=== PATIENT | male | born 1965 | race African-American/Black ===

== ENCOUNTER → 2017-06-08 | Outpatient (CLI) | payer OTHER ==
[~2017-06-08] MED LIST: ALBUTEROL17 GM INH; ALPHAGAN P5 ML OU; ASPIRIN81 M2 PO; ATRIPLA TABLET1 TAB PO; AZITHROMYCIN250 MG PO; BACTRIM 400-801 TA1 PO; BACTRIM DS TABL1 TAB PO; BENZONATATE PO; CENTRUM PO; DOXYCYCLINE PO; FLEXERIL10 MG PO; FLONASE16 GM; FOLIC ACID PO; KALETRA PO; LEXIVA700 MG PO; LISINOPRIL20 MG PO; LORTAB 7.5-3251 EACH PO; MEDROL DOSEPAK4 MG PO; METFORMIN HCL500 M1 PO; MULTI VITAMIN1 EACH PO; NORVIR100 MG PO; OMEPRAZOLE20 M1 PO; PREDNISONE PO; PREDNISONE5 MG/5 M1 OU; PRILOSEC PO; PROZAC PO; REYATAZ PO; TESSALON200 MG PO; THIAMINE HCL100 MG PO; TIMOPTIC 0.5% OP5 M1 OU; TRUVADA PO; TRUVADA TABLET1 TA1 PO; VIBRAMYCIN100 M1 PO; VITAMIN D250000 UNIT PO; ZITHROMAX PO
--- NOTE | ~2017-06-08 | US5 ---
[facility] A Service of [facility] RADIOLOGY TEXT RESULTS PATIENT: RICKY CURRY LOCATION: [facility] : 61 UNIT #: [id number] AGE: [address]: AUDRA KENNEDY SEX: M ORDER DR: [id number] [facility] [address] [place], [place] [address] [id number] O MR#: [id number] Acc #: [id number] NAME: RICKY CURRY : 1965 SEX: M STUDY DATE/TIME: 06/08/2017 10:46 UNIT: CGUS ROOM: STUDY DESCRIPTION: US Abdominal Complete Attending Physician: Audra Kennedy Aprn Referring Physician: Audra Kennedy Aprn Ordering Physician: Physician Non-Staff Primary Care Physician: Clive Farmer Jr., A.P.R.N. MEDICAL IMAGING REPORT This report is preliminary unless electronic signature is present EXAM Abdominal ultrasound complete, 06/08/2017 HISTORY Hepatitis B, observation for hepatocellular carcinoma and cirrhosis. Diabetes and hypertension. FINDINGS Liver demonstrates a somewhat coarsened echotexture but no cystic or solid mass lesions are seen within the liver. The intra and extrahepatic bile ducts are not dilated. The gallbladder is normal with no evidence of cholelithiasis, wall thickening or pericholecystic fluid. The common duct measures 4 mm. The pancreas and spleen are normal. The spleen measures 9 cm in greatest diameter. The visualized portions of the abdominal aorta and inferior vena cava are within normal limits. The kidneys are normal bilaterally. IMPRESSION Somewhat coarsened liver echotexture. Otherwise negative abdominal ultrasound. Dictated by... Denzel Barnes M.D. THIS IS AN ELECTRONICALLY VERIFIED REPORT Denzel Barnes M.D. at 06/09/2017 10:20 AM CARLOS/gerda TD: 06/08/2017 23:13 JOB #: [id number] [facility] A Service [facility] RADIOLOGY TEXT RESULTS PATIENT: RICKY CURRY LOCATION: [facility] : 61 UNIT #: [id number] AGE: [address]: AUDRA KENNEDY SEX: M ORDER DR: MEDICAL IMAGING REPORT Page 1 of 1 COPY
== END | disposition home or self-care (01) ==
LOC: CGUS 10:11
DX: B19.10 Unspecified viral hepatitis B without hepatic coma (principal)
CPT/HCPCS: 76700